=== PATIENT | male | born 1970 | race Caucasian/White ===

== ENCOUNTER 2017-07-08 12:42 | Emergency (ER) | payer OTHER ==
[~2017-07-08] VITALS: Ht 175.3 cm; Wt 79.5 kg
[2017-07-08 12:45] VITALS: BP 143/93
[2017-07-08] MEDS ORDERED: KETOROLAC 30 MG/1 ML ONE (13:20)
[2017-07-08] MEDS ORDERED: METHOCARBAMOL 750 MG TABLET ONE (13:20)
[2017-07-08] MEDS ORDERED: METHOCARBAMOL 750 MG TABLET PO ONE (13:30)
[2017-07-08] MEDS ORDERED: KETOROLAC 30 MG/1 ML IM ONE (13:30)
== END 2017-07-08 14:56 | disposition home or self-care (01) ==
LOC: ED 14:30
DX: S16.1XXA Strain of muscle, fascia and tendon at neck level, initial encounter (principal); S39.012A Strain of muscle, fascia and tendon of lower back, initial encounter; S29.012A Strain of muscle and tendon of back wall of thorax, initial encounter; E11.9 Type 2 diabetes mellitus without complications; V49.9XXA Car occupant (driver) (passenger) injured in unspecified traffic accident, initial encounter; Y93.89 Activity, other specified; Y92.89 Other specified places as the place of occurrence of the external cause; Y99.8 Other external cause status
CPT/HCPCS: 72020; 72050; 72072; 72110; 96372; 99284; J1885